=== PATIENT | female | born 1970 | race Caucasian/White ===

== ENCOUNTER 2018-03-21 19:34 | Emergency (ER) | payer OTHER ==
[2018-03-21 19:51] VITALS: BP 127/92; PULSE 92; RESP 18; TEMP 98.7
--- NOTE | 2018-03-21 20:00 | ED ---
Upper Extremity HPI - General Chief Complaint: Extremity Injury, Upper Stated Complaint: rt wrist pain from fall Time Seen by Provider: 03/21/18 19:53 Source: patient, RN notes reviewed Mode of arrival: ambulatory Limitations: no limitations - History of Present Illness Initial Comments: 48-year-old female presents emergency Department chief complaint of right wrist injury. She states that she is getting home from work slipped on her deck over the step and fell forward onto her right wrist. She is left-hand dominant. Patient denies any head injury no loss conscious. She states is painful to move denies any paresthesias. Patient had no prior fractures. - Related Data Allergies Allergy/AdvReac Type Severity Reaction Status Date / Time No Known Allergies Allergy Verified 03/21/18 19:51 Review of Systems ROS Statement: Those systems with pertinent positive or pertinent negative responses have been documented in the HPI. ROS Other: All systems not noted in ROS Statement are negative. Past Medical History Past Medical History: No Reported History History of Any Multi-Drug Resistant Organisms: None Reported Past Surgical History: Section, Tonsillectomy Past Psychological History: No Psychological Hx Reported Smoking Status: Never smoker Past Alcohol Use History: None Reported Past Drug Use History: None Reported General Exam Limitations: no limitations General appearance: alert, in no apparent distress Respiratory exam: Present: normal lung sounds bilaterally. Absent: respiratory distress, wheezes, rales, rhonchi, stridor Cardiovascular Exam: Present: regular rate, normal rhythm, normal heart sounds. Absent: systolic murmur, diastolic murmur, rubs, gallop, clicks Extremities exam: Present: other (Right wrist there is tenderness over the ulnar styloid region, patient has full range of motion, neurovascular intact no hand or proximal forearm tenderness) Skin exam: Present: warm, dry, intact, normal color. Absent: rash Course Vital Signs 03/21/18 19:49 Temperature 98.7 F Pulse Rate 92 Respiratory 18 Rate Blood Pressure 127/92 O2 Sat by Pulse 98 Oximetry Medical Decision Making - Medical Decision Making 48-year-old female presented for right wrist injury. X-rays were obtained which showed no acute fracture there is some chronic changes noted. Patient has a right wrist sprain will consider early cheek with ice 20 to time, ibuprofen return for any worsening symptoms. Disposition Clinical Impression: Right wrist sprain Disposition: HOME SELF-CARE Condition: Stable Instructions: Wrist Injury (ED) Additional Instructions: Please return to the Emergency Department if symptoms worsen or any other concerns. Is patient prescribed a controlled substance at d/c from ED?: No Referrals: Angus Valentin DO [Primary Care Provider] - 1-2 days Time of Disposition: 20:38
--- NOTE | 2018-03-21 20:25 | XR ---
EXAMINATION TYPE: XR wrist complete RT DATE OF EXAM: 03/21/2018 COMPARISON: NONE HISTORY: 48-year-old female with pain TECHNIQUE: 4 views FINDINGS: Slight positive ulnar variance. There is sclerotic appearance to the lunate with some cystic change o n both sides of the radiolunate joint, joint space narrowing, and articular surface irregularity on t he navicular view. Midcarpal compartment otherwise intact. Mild degenerative spurring first CMC joint . No acute fracture or dislocation. IMPRESSION: 1. 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 2. 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 3. Slight positive ulnar variance noted.
== END 2018-03-21 20:46 | disposition home or self-care (01) ==
LOC: EC 19:34
DX: S63.501A Unspecified sprain of right wrist, initial encounter (principal); W01.0XXA Fall on same level from slipping, tripping and stumbling without subsequent striking against object, initial encounter
CPT/HCPCS: 99283